=== PATIENT | female | born 1995 | race Caucasian/White ===

== ENCOUNTER 2020-07-08 00:56 | Emergency (ER) | payer OTHER, SELFPAY ==
--- NOTE | 2020-07-08 01:06 | DI.RAD.S_ITS ---
PROCEDURE: XR HAND RT MIN 3V INDICATIONS: Smashed hand between heavy metal objects TECHNIQUE: 3 views of the hand(s) acquired. COMPARISON: None. FINDINGS: Bones: No fractures. The 1st metacarpal is dislocated. Carpal bones are normally aligned. No suspicious bony lesions. Soft tissues: No suspicious soft tissue calcifications. IMPRESSION: 1st CMC joint dislocation. Dictated by: Renetta Tyson MD, PhD on 07/08/2020 at 8:47 Approved by: Renetta Tyson MD, PhD on 07/08/2020 at 8:50
[2020-07-08 01:08] VITALS: BP 140/97; PULSE 105; RESP 15; TEMP 36.8; O2SAT 99; BMI 29.0
--- NOTE | 2020-07-08 01:10 | PC.NURSE ---
Reports numbness from tip to base of thumb.
--- NOTE | 2020-07-08 01:40 | ED_ITS ---
HPI - Extremity Injury (Upper) General Chief Complaint: Extremity Injury, Upper Stated Complaint: Right thumb injury Time Seen by Provider: 07/08/20 01:20 Source: patient Mode of arrival: Ambulatory Limitations: no limitations History of Present Illness HPI narrative: Patient here with friend. Complains of right hand pain injury. At work. Caught between 2 hydraulic parts. Patient is right handed. Has discomfort base of the 1st metacarpal bone. Related Data Allergies Allergy/AdvReac Type Severity Reaction Status Date / Time No Known Drug Allergies Allergy Verified 07/08/20 01:08 Review of Systems Review of Systems Narrative: GENERAL: Denies chills, fatigue, malaise, fever, sweats. MUSCULOSKELETAL: denies weakness, complaint joint pain, or bony pain SKIN: Denies rash, skin lesions NEUROLOGIC: Complains of tingling to the thumb PSYCHIATRIC: No concerning psychosocial issues. ROS Unobtainable: All systems reviewed & are unremarkable except as noted in HPI and below Patient History Social History Smoking Status: Never smoker Smoking Status: Never smoker alcohol intake frequency: a few times a week Substance Use Type: does not use Exam Narrative Exam Narrative: GENERAL: patient appears stated age. Well-nourished, well- developed patient, in no distress, not toxic HEAD: Atraumatic. Normocephalic. EXTREMITIES: No gross deformity of the right hand. Light touch intact to. Mild tenderness to the base of the 1st metacarpal bone. Unable to bring tip of thumb across the palm. NEURO: AOx4. SKIN: No rash or erythema of visible areas PSYCH: Not anxious, is cooperative Initial Vital Signs Initial Vital Signs: Vital Signs Temperature 98.2 F 07/08/20 01:08 Pulse Rate 105 H 07/08/20 01:08 Respiratory Rate 15 07/08/20 01:08 Blood Pressure 140/97 H 07/08/20 01:08 Pulse Oximetry 99 07/08/20 01:08 Procedures Orthopedic Joint Reduction Joint #1: Time Out Performed: Yes Side: right Joint Reduction Location: other (First metacarpal bone) Analgesia: none Technique used: traction/counter-traction Post-reduction neuro exam: intact Post-reduction vascular: intact Post Reduction X-Ray Obtained: Yes Post Reduction X-Ray Results: not reduced Splint Applied: Yes Patient Tolerated Procedure: Well Orthopedic Splinting/Casting Injury #1: Side: right Upper Extremity Injury Location: hand Upper Extremity Immobilizer: thumb spica Post splinting neuro exam: intact Post splinting vascular exam: intact Placed by: Nursing Course Orders Ordered: ED Orders 07/08/20 01:06 XR hand RT min 3V Stat 07/08/20 02:08 XR hand RT min 3V Stat Reevaluation(s) Reevaluation #1: No improvement with attempted for traction/countertraction reduction/close reduction of the metacarpal bone Time: 03:14 Consultations Consultation #1: s/w dr thapa, ortho, he reviewed films...place in thumb spica splint and pt to call in 5 hours..office will open...for office time today Time: 03:15 Vital Signs Vital signs: Vital Signs - 8 hr 07/08/20 01:08 Temperature 98.2 F Pulse Rate 105 H Respiratory Rate 15 Blood Pressure 140/97 H Pulse Oximetry 99 MDM - Extremity Injury (Upper) Differential Diagnosis Differential diagnosis: Likely other (Thumb fracture/hand fractures/thumb dislocation) Imaging Data X-ray right hand: Radiologist's Impression: Dislocation of the 1st carpometacarpal joint X-ray post reduction right hand: Attestation: I personally reviewed and interpreted this imaging study as follows: My Impression: No improvement of dislocation of the 1st carpometacarpal joint, no fracture MDM Narrative Medical decision making narrative: Appropriate for discharge. Patient has follow-up in 6 hours Discharge Plan Departure Patient Disposition: Home Clinical Impression: Dislocation of carpometacarpal joint Qualifiers: Encounter type: initial encounter Laterality: right Qualified Code(s): S63.054A - Dislocation of other carpometacarpal joint of right hand, initial encounter Discharge Date/Time: 07/08/20 03:32 Activity Restrictions/Additional Instructions: Keep hand in splint. Call provided orthopedic office 830 this morning for Office instructions for time to be seen. Return for any concerns or questions. Do not eat or drink anything until instructed by the office Referrals: Aaron Thapa MD [Physician] -
--- NOTE | 2020-07-08 02:08 | DI.RAD.S_ITS ---
PROCEDURE: XR HAND RT MIN 3V INDICATIONS: Post reduction TECHNIQUE: 3 views of the hand(s) acquired. COMPARISON: [facility], , XR HAND RT MIN 3V, 07/08/2020, 0:56. FINDINGS: Bones: Dislocation of the 1st CMC joint with lateral and proximal displacement of the 1st metacarpal. Soft tissues: No suspicious soft tissue calcifications. IMPRESSION: 1st CMC joint dislocation. Dictated by: Renetta Tyson MD, PhD on 07/08/2020 at 8:50 Approved by: Renetta Tyson MD, PhD on 07/08/2020 at 8:51
--- NOTE | 2020-07-08 03:32 | PC.NURSE ---
Assisted provider x2 to try and relocate bone.
== END 2020-07-08 03:32 | disposition home or self-care (01) ==
PROVIDERS: Emergency Provider Emergency Medicine
DX: S63.054A Dislocation of other carpometacarpal joint of right hand, initial encounter (principal); W23.0XXA Caught, crushed, jammed, or pinched between moving objects, initial encounter
CPT/HCPCS: 73130; 99283

== ENCOUNTER 2020-07-08 13:52 | Day surgery (SDC) | payer OTHER, SELFPAY ==
[2020-07-08] VITALS (7 sets, daily range): BP systolic 114–130; BP diastolic 56–84; PULSE 71–90; RESP 15–99; TEMP 36.3–37.2; O2SAT 20–99; BMI 33.1
[2020-07-08 14:32] LABS: COVID19 -Nasal RAPID Negative (Negative)
[2020-07-08] MEDS: LACTATED RINGERS 1,000 ML 42 ML IV (14:43)
--- NOTE | 2020-07-08 15:16 | P.HP_ITS ---
History of Present Illness History of Present Illness Date Patient Seen: 07/08/20 Time Patient Seen: 15:16 Date of Onset of Symptoms: 07/07/20 Chief complaint: SDC Narrative: 25-year-old [id number] female with a right thumb CMC dislo cation. She works as an aircraft powerplant repairer. She had her right hand crushed between 2 pieces of machinery yesterday and had immediate pain at the base of the right thumb. She is right-hand dominant. She was seen in the emergency room where they tried to reduce the dislocation but could not successfully do this. She denies pain anywhere else. She denies numbness or tingling. She is unable to bring her thumb across the hand. Patient History Medical History Allergy to chocolate (Acute) Surgical History Hx of cholecystectomy (Acute) Hx of foot surgery (Acute) Family & Social History Social History: household members friend(s) Tobacco & Substance use: Smoking Status Never smoker alcohol intake current alcohol intake frequency a few times a month Substance Use Type does not use Meds Home Medications and Allergies Home Medications Medication Instructions Recorded Confirmed Type No Known Home Medications 07/08/20 07/08/20 History Allergies Allergy/AdvReac Type Severity Reaction Status Date / Time nickel Allergy Unknown hives, rash Verified 07/08/20 14:23 Review of Systems Constitutional Constitutional: Denies chills and Denies fever(s) ENT Ears, Nose, Mouth, and Throat: No dizziness Cardiovascular Cardiovascular: Denies chest pain Respiratory Respiratory: Denies cough Neurologic Neurologic: Denies dizziness Hematologic/Lymphatic Hematologic/Lymphatic: Denies easy bruising Exam Vital Signs (past 8 hours): - 07/08/20 14:39 Temperature 99.0 F Pulse Rate 75 Respiratory Rate 24 Blood Pressure 130/84 Pulse Oximetry 98 Oxygen Delivery Method Room Air Const Orientation: alert and oriented x3 Resp Auscultation: clear to auscultation bilaterally Cardio Rate: regular rate Rhythm: regular rhythm Extrem Other: Right hand intact integument minimal swelling. Very tender over CMC joint. Able to abduct thumb approximately senior living across the palm. Intact sensation good capillary refill in the thumb. Able to independently flex and extend the MCP and IP joints. Objective Imaging Right hand x-ray: My impression: Shows a dislocated right CMC joint. No evidence of fracture. Labs Labs: Laboratory Results - last 24 hr 07/08/20 14:10 COVID-19 PCR Negative Assessment & Plan Assessment & Plan narrative: Right CMC dislocation, unstable. Plan is to bring her to the operating room for closed reduction under anesthesia. If this is not able to reduce closed, we will have to open this. We will then use percutaneous pinning for postoperative stability. Risks and benefits of surgery discussed including but not limited to medical risk with heart attack, stroke, , infection, bleeding, stiffness, laxity, loss of reduction, need for further surgery. She understands we will pin this today. COVID-19 COVID-19 status: Negative Result date/Date tested (Pos, Neg/Pending): 07/08/20
[2020-07-08] MEDS: CEFAZOLIN 2 GM/100 ML FROZ.PIGGY IV (16:00)
--- NOTE | 2020-07-08 16:19 | PM.OP.1 ---
Operative Date/Time/Diagnoses Date of procedure: 07/08/20 Time of procedure: 16:19 Pre-op diagnosis: Dislocated right thumb CMC joint. Post-op diagnosis: same Procedure & Clinicians Procedure: Closed reduction of right thumb CMC joint under anesthesia Same procedure as scheduled: Yes Indications: [age] year old female with a dislocated CMC joint that could not be reduced in the emergency room. Also should benefit from reduction under anesthesia with possible pinning. Risks and benefits of surgery were discussed and appropriate consents were obtained. Surgeon: Aubrey Nino Click Yes if Unassisted: Yes Anesthesia Type: General Operative Notes Findings: Stable after reduction Closure Type: not applicable Specimen(s): none sent Estimated Blood Loss (mL): 0 Procedure in detail: Patient brought to the operating room and intubated under general anesthesia. Time-out was performed. Preoperative antibiotics were given. Attention was turned towards the well marked right hand. A reduction maneuver was performed with flexing the MCP and applying traction while manipulating the CMC joint. We used fluoroscopy and the joint was completely reduced. I then placed the joint through a full range of motion with his much manipulation as possible to try to dislocated again but was completely stable once it had reduced. Because of this, we did not need to pin her. We just placed her back into her thumb spica splint. She was extubated brought to recovery with no complications. Complications: none Post-operative Condition: stable Disposition: PACU Plan for aftercare: Outpatient.
--- NOTE | 2020-07-08 16:21 | SUR.OPER ---
Supine on padded OR bed, head on pillow, non operative arm secured on padded arm board at <90 degrees abduction, operative arm positioned on hand table, legs uncrossed, safety belt at thigh, tape over blanket over lower legs.
--- NOTE | 2020-07-08 17:26 | SUR.PHASEII ---
1404 Bridger Morelos RN reported that pt was ready to go, just needed dc time. RN had gone home. Pt was pleasant, oriented, comfortable, stable on feet upon transfer. She denied having any questions/concerns.
== END 2020-07-08 16:58 | disposition home or self-care (01) ==
PROVIDERS: Referring Provider Orthopaedic Surgery; Visit Provider Orthopaedic Surgery
PROC: (CPT 26641; principal; 2020-07-08 15:30)
DX: S63.044A Dislocation of carpometacarpal joint of right thumb, initial encounter (principal); Z11.59 Encounter for screening for other viral diseases; W31.82XA Contact with other commercial machinery, initial encounter; Y92.63 Factory as the place of occurrence of the external cause
CPT/HCPCS: 26641; 73130; 87635; 99283; J0690; J2250; J3010